=== PATIENT | female | born 1965 | race Caucasian/White ===

== ENCOUNTER → 2016-11-03 | Outpatient (CLI) | payer BC ==
--- NOTE | 2016-11-03 21:52 | WWHP ---
CHIEF COMPLAINT: The patient is here for her routine gynecologic exam and mammogram. HPI: This is a 51-year-old G2, P2 with an LMP of 05/26/2016. Her is status post vasectomy. She states she has had about 4 periods over the last 12 months and they have been infrequent. She has had more hot flashes and these were greatest about 2 months ago and have gotten slightly better. These are tolerable. She is otherwise without complaints. PAST MEDICAL HISTORY: Asthma and history of osteopenia. MEDICATIONS: 1. Advair 100/50, 1 puff daily. 2. Fluticasone nasal spray daily. 3. Zyrtec 10 mg daily. 4. Citracal calcium supplement daily. 5. Multivitamin daily. ALLERGIES: AVELOX, OMNICEF AND MEDROL DOSEPAK. PAST SURGICAL HISTORY: Unremarkable. PAST OB HISTORY: 2 vaginal deliveries. 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 SOCIAL HISTORY: She denies tobacco and drug use and has about 3 alcoholic drinks per week. 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 Family history is unchanged from the 2014 H&P. REVIEW OF SYSTEMS: She has gained about 6 pounds over the last year. She denies respiratory, cardiac or GI problems. PHYSICAL EXAM: Blood pressure 122/72. Height 5 feet 3-1/2 inches. Weight 137 pounds. Temperature 97.8, pulse 94. This a well-developed, well-nourished white female who is alert and oriented x3, in no acute distress. HEENT is within normal limits. NECK: Supple without mass or thyromegaly. CHEST AND LUNGS: Clear to auscultation. HEART: Regular rate and rhythm. Breasts are without mass or discharge. Axillary is negative for adenopathy. BACK: Negative for CVA tenderness. ABDOMEN: Soft, nontender, without palpable masses. PELVIC: Normal external genitalia. Cervix and vagina appear normal. There is no unusual discharge. There is mild atrophy noted. There is no evidence of prolapse. Bimanual: The uterus is midposition, nongravid size and nontender. There are no palpable adnexal masses or tenderness. Rectovaginal is negative for mass or tenderness and is negative for occult blood. EXTREMITIES: Nontender. IMPRESSION: 1. A 51-year-old perimenopausal female with oligomenorrhea and vasomotor symptoms. 2. Normal gynecologic exam. 3. History of osteopenia. PLAN: 1. Pap smear was performed. 2. Self-breast examination was discussed. 3. Mammogram will be done today. 4. Osteoporosis prevention was discussed. I have recommended that she try to get at least 120% of the daily value of calcium every day spread out throughout the day. I have also recommended vitamin D and regular exercise. 5. She will continue to keep a menstrual calendar and call if she is having problems. 6. She will return in 1 year.
--- NOTE | 2016-11-05 09:57 | MM ---
Reason for exam: screening (asymptomatic). Last mammogram was performed 1 year and 7 months ago. History: Family history of breast cancer in paternal grandmother. Took hormonal contraceptives for 3 years. Physical Findings: A clinical breast exam by your physician is recommended on an annual basis and results should be correlated with mammographic findings. MG Screening Mammo w CAD Bilateral CC and MLO view(s) were taken. Prior study comparison: April 09, 2015, bilateral MG screening mammo w CAD. January 09, 2014, bilateral digital screening mammo w/CAD. The breast tissue is heterogeneously dense. This may lower the sensitivity of mammography. No significant changes when compared with prior studies. ASSESSMENT: Benign, BI-RAD 2 RECOMMENDATION: Routine screening mammogram of both breasts in 1 year.
== END | disposition home or self-care (01) ==
LOC: WWCWWP 15:46
PROVIDERS: ATTEND Obstetrics & Gynecology
DX: Z12.31 Encounter for screening mammogram for malignant neoplasm of breast (principal)

== ENCOUNTER → 2018-01-18 | Outpatient (CLI) | payer BC ==
[2018-01-18 15:53] VITALS: BP 154/85; PULSE 79; TEMP 98.2; BMI 23.6
--- NOTE | 2018-01-18 16:25 | P.HPOB ---
History of Present Illness H&P Date: 01/18/18 Chief Complaint: The patient is here for her routine gynecologic exam and mammogram. This is a 52-year-old with an LMP of 01/02/2018. She has had for periods over the last one year. It have been about every 3 to 4 months. Most of her menstrual periods have been on the pension agent side. Her LMP was heavier than usual and lasted about 10 days. She has occasional hot flashes which are not very severe. Recently, she has been experiencing some right-sided deep dyspareunia. This has not been every time. Review of Systems She is lost about 4 pounds over the last year. She denies respiratory, cardiac , or G.I. problems. Past Medical History Past Medical History: Asthma Additional Past Medical History / Comment(s): History of osteopenia. History of Any Multi-Drug Resistant Organisms: None Reported Past Surgical History: No Surgical Hx Reported Past Psychological History: No Psychological Hx Reported Smoking Status: Never smoker Past Alcohol Use History: Occasional (Approximately 2 per week.) Past Drug Use History: None Reported - Past Family History Father Additional Family Medical History / Comment(s): Alzheimer's disease, atrial fibrillation and history of asbestosis. Mother Family Medical History: Hypertension Medications and Allergies Home Medications Medication Instructions Recorded Confirmed Type Fluticasone Propionate [Flovent bottle PO DAILY 01/18/18 History Diskus] Fluticasone/Salmeterol [Advair 1 inhalation PO BID 01/18/18 01/18/18 History 100-50 Diskus] Multivitamins, Thera [Multivitamin 1 tab PO DAILY 01/18/18 01/18/18 History (formulary)] Allergies Allergy/AdvReac Type Severity Reaction Status Date / Time No Known Allergies Allergy Unverified 01/18/18 15:55 Exam - Vital Signs Vital signs: Vital Signs Temp Pulse BP 01/18/18 15:51 98.2 F 79 154/85 Intake and Output 01/18/18 01/18/18 01/18/18 06:59 14:59 22:59 Other: Weight 60.328 kg Height 5'3", BMI 23.6. This is a well-developed well-nourished white female who is alert and oriented times 3 in no acute distress. HEENT: Within normal limits. NECK: Supple without mass or thyromegaly. CHEST AND LUNGS: Clear to auscultation. HEART: Regular rate and rhythm. BREASTS: Are without mass or discharge. AXILLARY EXAM: Negative for adenopathy. BACK: Negative for CVA tenderness. ABDOMEN: Soft, nontender, without palpable masses. PELVIC EXAM: Normal external genitalia. Cervix and vagina appear normal without significant atrophy. There is no unusual discharge. There is no evidence of prolapse. The uterus is midposition, approximately 8 to 10 weeks size, is firm and slightly irregular. The uterus is nontender . There are no palpable adnexal masses or tenderness. RECTAL EXAM: rectovaginal exam is negative for mass or tenderness and is negative for occult blood. EXTREMITIES: Nontender. IMPRESSION: 1. 52-year-old perimenopausal female with oligomenorrhea and mild vasomotor symptoms. 2. Recent right-sided deep dyspareunia. 3. Mildly enlarged 8 to 10 weeks size uterus consistent with possible uterine fibroids. The dyspareunia may be related to the uterine enlargement. 4. History of osteopenia. PLAN: 1. Pap smear was deferred since she had a normal one last year. 2. Self breast examination was discussed. 3. Screening mammogram will be done today. 4. The patient will be scheduled for a pelvic ultrasound to further evaluate the dyspareunia and uterine enlargement. 5. I have recommended screening colonoscopy based on her age. Dr. Donny covarrubias was given to the patient for this. 6. Will plan on repeating bone density testing next year. 7. She will return in one year and PRN.
--- NOTE | 2018-01-20 13:00 | MM ---
Reason for exam: screening (asymptomatic). Last mammogram was performed 1 year and 3 months ago. History: Family history of breast cancer in paternal grandmother. Took hormonal contraceptives for 3 years. Physical Findings: A clinical breast exam by your physician is recommended on an annual basis and results should be correlated with mammographic findings. MG Screening Mammo w CAD Bilateral CC and MLO view(s) were taken. Prior study comparison: November 03, 2016, bilateral MG screening mammo w CAD. April 09, 2015, bilateral MG screening mammo w CAD. The breast tissue is heterogeneously dense. This may lower the sensitivity of mammography. No significant changes when compared with prior studies. ASSESSMENT: Negative, BI-RAD 1 RECOMMENDATION: Routine screening mammogram of both breasts in 1 year.
== END | disposition home or self-care (01) ==
LOC: WWCWWP 15:17
PROVIDERS: ATTEND Obstetrics & Gynecology
DX: Z12.31 Encounter for screening mammogram for malignant neoplasm of breast (principal)
CPT/HCPCS: 77067

== ENCOUNTER → 2018-01-24 | Outpatient (CLI) | payer BC ==
--- NOTE | 2018-01-25 07:59 | US ---
EXAMINATION TYPE: US pelvic complete DATE OF EXAM: 01/24/2018 COMPARISON: 04/09/2015 CLINICAL HISTORY: N85.2 ENLARGED UTERUS,N94.1 DYSPAREUNIA,R68.89 ABN FINDINGS. right sided pelvic lilia n TECHNIQUE: TA. Date of LMP: 01/06/2018 EXAM MEASUREMENTS: Uterus: 8.3 x 6.1 x 5.1 cm Endometrial Stripe: 0.7 cm Right Ovary: 2.7 x 1.6 x 1.8 cm Left Ovary: 3.3 x 1.9 x 1.9 cm 1. Uterus: Anteverted There is a solitary hypoechoic 3.0 x 3.0 x 2.8 cm intramural uterine fundal lesion that is right lateral. This better delineated on today's examination than the prior. 2. Endometrium: wnl 3. Right Ovary: wnl 4. Left Ovary: wnl 5. Bilateral Adnexa: wnl 6. Posterior cul-de-sac: wnl IMPRESSION: 1. Solitary 3.0 cm intramural uterine fundal lesion, likely a leiomyoma, better delineated on today's examination than the prior of 2014. 2. Unremarkable endometrial thickness and ovaries.
== END | disposition home or self-care (01) ==
LOC: RADUSWWP 16:18
PROVIDERS: ATTEND Obstetrics & Gynecology
DX: N85.9 Noninflammatory disorder of uterus, unspecified (principal); N94.10 Unspecified dyspareunia
CPT/HCPCS: 76856

== ENCOUNTER → 2020-05-08 | Outpatient (CLI) | payer BC ==
[2020-05-08 11:46] VITALS: BP 145/78; PULSE 86; RESP 18; TEMP 98.3
--- NOTE | 2020-05-08 12:53 | P.HPOB ---
History of Present Illness H&P Date: 05/08/20 Chief Complaint: The patient is here for her routine gynecologic exam and ma mmogram. This is a 55-year-old with an LMP of 2018. The patient states her hot flashes that she had 1-2 years ago have improved and are infrequent. She has been experiencing pain with intercourse not improved with lubrication. She denies pelvic pain with deep penetration. She also can have a difficult time falling asleep at times which started after the menopause but has gotten worse over the last 6 months. She is otherwise without gynecologic complaints and denies postmenopausal bleeding. Review of Systems Her weight has been fairly stable. She denies respiratory or cardiac problems. GI: Occasional constipation. Musculoskeletal: She does have some joint pains. Past Medical History Past Medical History: Asthma Additional Past Medical History / Comment(s): History of osteopenia. 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 - Past Family History Father Family Medical History: AFIB, Dementia Additional Family Medical History / Comment(s): Alzheimer's disease, atrial fibrillation and history of asbestosis. Paternal grandmother had breast cancer. Mother Family Medical History: Hypertension Medications and Allergies Home Medications Medication Instructions Recorded Confirmed Type Fluticasone Propionate [Flovent 50 mcg PO DAILY 01/18/18 05/08/20 History Diskus] Fluticasone/Salmeterol [Advair 1 inhalation PO BID 01/18/18 05/08/20 History 100-50 Diskus] Multivitamins, Thera [Multivitamin 1 tab PO DAILY 01/18/18 05/08/20 History (formulary)] Azelastine HCl [Astepro] 137 mcg NASAL BID 05/08/20 05/08/20 History Calcium Carb/Vitamin D3/Vit K1 1 tab PO DAILY 05/08/20 05/08/20 History [Citracal Soft Chew] Allergies Allergy/AdvReac Type Severity Reaction Status Date / Time cefdinir [From Omnicef] Allergy Rash/Hives Unverified 05/08/20 11:46 Exam Vital Signs Temp Pulse Resp BP Pulse Ox 05/08/20 11:44 98.3 F 86 18 145/78 99 Intake and Output 05/07/20 05/08/20 05/08/20 22:59 06:59 14:59 Other: Weight 61.235 kg Height 5 feet 4 inches, weight 135 pounds, BMI 23.2. This is a well-developed well-nourished white female who is alert and oriented times 3 in no acute distress. HEENT: Within normal limits. NECK: Supple without mass or thyromegaly. CHEST AND LUNGS: Clear to auscultation. HEART: Regular rate and rhythm. BREASTS: Are without mass or discharge. AXILLARY EXAM: Negative for adenopathy. BACK: Negative for CVA tenderness. ABDOMEN: Soft, nontender, without palpable masses. PELVIC EXAM: Normal external genitalia with mild atrophy. Cervix and vagina appear normal with mild atrophy. Vagina feels somewhat smaller than average for a parous woman. There is no unusual discharge. There is no evidence of prolapse. The uterus is midposition, nongravid size and nontender. There are no palpable adnexal masses or tenderness. RECTAL EXAM: Rectovaginal exam is negative for mass or tenderness and is negative for occult blood. EXTREMITIES: Nontender. IMPRESSION: 1. 55-year-old menopausal female with normal gynecologic exam. 2. Dyspareunia no improvement with lubrication probably secondary to genital atrophy and possible loss of elasticity in decreasing vagina size secondary to menopause. 3. Elevated blood pressure 4. History of osteopenia PLAN: 1. Pap smear was performed. 2. Self breast awareness was discussed with the patient. 3. Screening mammogram will be done today. 4. Trial of Premarin vaginal cream 1-2 g into the vagina twice weekly. The electronic prescription will be sent to [facility] pharmacy on [facility]. 5. Osteoporosis prevention was discussed. I have stressed the importance of adequate calcium, vitamin D and regular exercise. Recommended amounts of calcium and vitamin D were also discussed. Last bone density test was done in 2014. I recommended repeating bone density testing and the order slip was given to the patient for this. 6. I have recommended screening colonoscopy based on her age since she she has never had a colonoscopy. She states she is planning to establish with a primary care physician and then will arrange for colonoscopy. 7. She was advised to return in one year for her annual well woman exam and as needed.
--- NOTE | 2020-05-10 08:59 | MM ---
Reason for exam: screening (asymptomatic). Last mammogram was performed 2 years and 4 months ago. History: Patient is postmenopausal. Family history of breast cancer in paternal grandmother. Took hormonal contraceptives for 3 years. Physical Findings: A clinical breast exam by your physician is recommended on an annual basis and results should be correlated with mammographic findings. MG Screening Mammo w CAD Bilateral CC and MLO view(s) were taken. Prior study comparison: January 18, 2018, bilateral MG screening mammo w CAD. November 03, 2016, bilateral MG screening mammo w CAD. The breast tissue is heterogeneously dense. This may lower the sensitivity of mammography. No significant changes when compared with prior studies. ASSESSMENT: Negative, BI-RAD 1 RECOMMENDATION: Routine screening mammogram of both breasts in 1 year.
--- NOTE | 2020-05-14 09:52 | P.PN ---
Progress Note - Text Progress Note Date: 05/14/20 OUTPATIENT FOLLOW-UP NOTE TEST(S)/RESULTS: test results from 05/08/2020 include negative Pap smear and benign mammogram. METHOD OF NOTIFICATION: the patient was notified by phone. PATIENT COMMENTS: the patient is happy to hear these results. DIAGNOSIS: negative Pap smear and benign mammogram. DISCUSSION: PLAN: the patient is to return in one year for her annual well woman exam.
== END | disposition home or self-care (01) ==
LOC: WWCWWP 11:16
PROVIDERS: ATTEND Obstetrics & Gynecology
DX: Z12.31 Encounter for screening mammogram for malignant neoplasm of breast (principal)
CPT/HCPCS: 77067

== ENCOUNTER → 2020-06-07 | Outpatient (CLI) | payer BC ==
--- NOTE | 2020-06-07 18:37 | BD ---
EXAMINATION TYPE: Axial Bone Density DATE OF EXAM: 06/07/2020 COMPARISON: NONE CLINICAL HISTORY: 55-year-old female postmenopausal screening Height: 5 FT 3 1/2 IN Weight: 131 FRAX RISK QUESTIONS: Alcohol (3 or more units per day): NO Family History (Parent hip fracture): NO Glucocorticoids (More than 3mos): YES (Ex: prednisone, prednisolone, methylprednisolone, dexamethasone, and hydrocortisone). History of Fracture in Adulthood: YES Secondary Osteoporosis: 1. Type 1 Diabetes: NO 2. Hyperthyroidism: NO 3. Menopause before 45: NO 4. Malnutrition: NO 5. Chronic liver disease: NO Rheumatoid Arthritis: NO Current Tobacco Use: NO RISK FACTORS HISTORY OF: Active: YES Postmenopausal woman: AGE 53 MEDICATIONS: Additional Medications: ADVAIR,NASAL INHALER, Additional History: HISTORY OF ASTHMA EXAM MEASUREMENTS: Bone mineral densitometry was performed using the [employer] System. Bone mineral density as measured about the Lumbar spine is: ----- L1-L4(G/cm2): 0.957 T Score Values are as follows: ----- L2: -2.1 ----- L3: -1.7 ----- L4: -1.8 ----- L1-L4: -1.9 Bone mineral density has: DECREASED -6.3 % since study of: 2014 Bone mineral density about the R hip (g/cm2): 0.937 Bone mineral density about the L hip (g/cm2): 0.961 T Score values are as follows: -----R Neck: -0.7 -----L Neck: -0.6 -----R Total: -1.3 -----L Total: -1.2 Bone mineral density has: DECREASED -6.8 % since study of: 2014 IMPRESSION: Osteopenia (T Score between -2.5 and -1). There is slightly increased risk of fracture and the patient may be considered for treatment. Re-Screen 2-5 years. NOTE: T-SCORE=SD OF THE YOUNG ADULT MEAN.
== END | disposition home or self-care (01) ==
LOC: RADBDWWP 14:13
PROVIDERS: ATTEND Obstetrics & Gynecology
DX: M85.80 Other specified disorders of bone density and structure, unspecified site (principal); Z78.0 Asymptomatic menopausal state
CPT/HCPCS: 77080

== ENCOUNTER → 2021-08-19 | Outpatient (CLI) | payer BC ==
[2021-08-19 15:39] VITALS: BP 146/82; PULSE 82; RESP 16; TEMP 98.3
--- NOTE | 2021-08-19 16:25 | P.HPOB ---
History of Present Illness H&P Date: 08/19/21 Chief Complaint: The patient is here for her routine gynecologic exam and ma mmogram. This is a 56-year-old with an LMP of 2018. The patient is without gynecologic complaints and denies any postmenopausal bleeding. She states she did well with Premarin cream which was used for vaginal dryness. She states her insurance no longer covers Premarin vaginal cream. Review of Systems The patient's weight has been stable over the last year. She denies respiratory, cardiac, or G.I. problems. Past Medical History Past Medical History: Asthma Additional Past Medical History / Comment(s): History of osteopenia. 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 - Past Family History Father Family Medical History: AFIB, Dementia Additional Family Medical History / Comment(s): . Alzheimer's disease, atrial fibrillation and history of asbestosis. Paternal grandmother had breast cancer. Mother Family Medical History: Hypertension Medications and Allergies Home Medications Medication Instructions Recorded Confirmed Type Fluticasone/Salmeterol [Advair 1 inhalation PO BID 01/18/18 08/19/21 History 100-50 Diskus] Multivitamins, Thera [Multivitamin 1 tab PO DAILY 01/18/18 08/19/21 History (formulary)] Calcium Carb/Vitamin D3/Vit K1 1 tab PO DAILY 05/08/20 08/19/21 History [Citracal Soft Chew] Cetirizine HCl [Zyrtec] 10 mg PO DAILY 08/19/21 08/19/21 History Allergies Allergy/AdvReac Type Severity Reaction Status Date / Time cefdinir [From Omnicef] Allergy Rash/Hives Unverified 08/19/21 15:31 Exam Vital Signs Temp Pulse Resp BP Pulse Ox 08/19/21 15:36 98.3 F 82 16 146/82 100 Intake and Output 08/19/21 08/19/21 08/19/21 06:59 14:59 22:59 Other: Weight 60.781 kg Height 5 feet 3 inches, weight 134 pounds, BMI 23.7. This is a well-developed well-nourished white female who is alert and oriented times 3 in no acute distress. HEENT: Within normal limits. NECK: Supple without mass or thyromegaly. CHEST AND LUNGS: Clear to auscultation. HEART: Regular rate and rhythm. BREASTS: Are without mass or discharge. AXILLARY EXAM: Negative for adenopathy. BACK: Negative for CVA tenderness. ABDOMEN: Soft, nontender, without palpable masses. PELVIC EXAM: Normal external genitalia with mild atrophy. Cervix and vagina appear normal with mild atrophy. There is no unusual discharge. There is no evidence of prolapse. The uterus is midposition, nongravid size and nontender. There are no palpable adnexal masses or tenderness. RECTAL EXAM: Rectovaginal exam is negative for mass or tenderness and is negative for occult blood. EXTREMITIES: Nontender. IMPRESSION: 1. 56-year-old menopausal female with normal gynecologic exam. 2. History of osteopenia. 3. Mildly elevated blood pressure PLAN: 1. Pap smear was deferred since she had a normal one on 05/08/2020. 2. Self breast awareness was discussed with the patient. We have also discussed symptoms associated with inflammatory breast cancer. 3. Screening mammogram will be done today. 4. We have discussed her elevated blood pressure. I have recommended that she check her own blood pressure at home on a regular basis. I have also recommended that she establish with a primary care physician since she currently does not have one. She can follow up with a primary care physician for blood pressure elevations. 5. I recommended colorectal screening her age. Again, she should establish with a primary care physician who can further discussed the options with her. 6. She has completed her Covid vaccination series. 7. Osteoporosis prevention was discussed. I have stressed the importance of adequate calcium, vitamin D and regular exercise. Recommended amounts of calcium and vitamin D were also discussed. We will plan on repeating bone density testing in 1-2 years. 8. She was advised to return in one year for her annual well woman exam.
--- NOTE | 2021-08-21 10:34 | MM ---
Reason for exam: screening (asymptomatic). Last mammogram was performed 1 year and 3 months ago. History: Patient is postmenopausal. Family history of breast cancer in paternal grandmother. Took hormonal contraceptives for 3 years. Physical Findings: A clinical breast exam by your physician is recommended on an annual basis and results should be correlated with mammographic findings. MG Screening Mammo w CAD Bilateral CC and MLO view(s) were taken. Prior study comparison: May 08, 2020, bilateral MG screening mammo w CAD. January 18, 2018, bilateral MG screening mammo w CAD. The breast tissue is heterogeneously dense. This may lower the sensitivity of mammography. No significant changes when compared with prior studies. ASSESSMENT: Benign, BI-RAD 2 RECOMMENDATION: Routine screening mammogram of both breasts in 1 year.
== END ==
LOC: WWCWWP 15:14
PROVIDERS: ATTEND Obstetrics & Gynecology
DX: Z12.31 Encounter for screening mammogram for malignant neoplasm of breast (principal); Z01.419 Encounter for gynecological examination (general) (routine) without abnormal findings; J45.909 Unspecified asthma, uncomplicated; Z87.39 Personal history of other diseases of the musculoskeletal system and connective tissue; R03.0 Elevated blood-pressure reading, without diagnosis of hypertension; Z88.1 Allergy status to other antibiotic agents
CPT/HCPCS: 77067

== ENCOUNTER → 2023-02-16 | Outpatient (CLI) | payer BC ==
[2023-02-16 08:03] VITALS: BP 147/79; PULSE 76; RESP 17; TEMP 97.7
--- NOTE | 2023-02-16 08:41 | P.HPOB ---
History of Present Illness H&P Date: 02/16/23 Chief Complaint: The patient is here for her routine gynecologic exam and ma mmogram. This is a 57-year-old with an LMP of 2018. The patient is without gynecologic complaints and denies any postmenopausal bleeding. She states she continues to do well using Premarin vaginal cream for vaginal dryness. Review of Systems The patient has lost about 7 pounds with diet and exercise. She denies respiratory or cardiac problems. GI: Occasional constipation. Past Medical History Past Medical History: Asthma Additional Past Medical History / Comment(s): History of osteopenia. 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 - Past Family History Father Family Medical History: AFIB, Dementia Additional Family Medical History / Comment(s): . Alzheimer's disease, atrial fibrillation and history of asbestosis. Paternal grandmother had breast cancer. Mother Family Medical History: Hypertension Sister(s) Family Medical History: Cancer Additional Family Medical History / Comment(s): Breast cancer at age 58. Medications and Allergies Home Medications Medication Instructions Recorded Confirmed Type Fluticasone Propion/Salmeterol 1 inhalation PO BID 01/18/18 02/16/23 History [Advair 100-50 Diskus] Multivitamins, Thera [Multivitamin 1 tab PO DAILY 01/18/18 02/16/23 History (formulary)] Calcium Carb/Vitamin D3/Vit K1 1 tab PO DAILY 05/08/20 02/16/23 History [Citracal Soft Chew] Cetirizine HCl [Zyrtec] 10 mg PO DAILY 08/19/21 02/16/23 History Estrogens, Conjugated Cream 1 applicator VAGINAL DIRECTED 08/19/21 02/16/23 Rx [Premarin Vaginal Cream] #42.5 gm Azelastine HCl [Astepro] 1 spray .ROUTE DAILY 02/16/23 02/16/23 History Allergies Allergy/AdvReac Type Severity Reaction Status Date / Time cefdinir [From Omnicef] Allergy Rash/Hives Unverified 02/16/23 07:57 Exam Vital Signs Temp Pulse Resp BP Pulse Ox 02/16/23 08:01 97.7 F 76 17 147/79 100 Intake and Output 02/15/23 02/16/23 02/16/23 22:59 06:59 14:59 Other: Weight 57.606 kg Height 5 feet 3 inches, weight 127 pounds, BMI 22.5. This is a well-developed well-nourished white female who is alert and oriented times 3 in no acute distress. HEENT: Within normal limits. NECK: Supple without mass or thyromegaly. CHEST AND LUNGS: Clear to auscultation. HEART: Regular rate and rhythm. BREASTS: Are without mass or discharge. AXILLARY EXAM: Negative for adenopathy. BACK: Negative for CVA tenderness. ABDOMEN: Soft, nontender, without palpable masses. PELVIC EXAM: Normal external genitalia with mild atrophy. Cervix and vagina appear normal with mild atrophy. There is no unusual discharge. There is no evidence of prolapse. The uterus is midposition, nongravid size and nontender. There are no palpable adnexal masses or tenderness. RECTAL EXAM: Rectovaginal exam is negative for mass or tenderness and is negative for occult blood. EXTREMITIES: Nontender. IMPRESSION: 1. 57-year-old menopausal female with normal gynecologic exam. 2. Mildly elevated blood pressure. 3. History of osteopenia. 4. Family history of breast cancer in her sister. PLAN: 1. Pap smear cotest was performed. 2. Self breast awareness was discussed with the patient. We have also discussed symptoms associated with inflammatory breast cancer. 3. Screening mammogram will be done today. 4. We have discussed her elevated blood pressure. She states she has a blood pressure cuff at home. She states her blood pressure was normal yesterday and today before coming to the appointment. I recommended that she check her own blood pressure on a regular basis and establish with a PCP who she can see for blood pressure elevations. She plans to get a PCP this year. 5. Osteoporosis prevention was discussed. I have stressed the importance of adequate calcium, vitamin D and regular exercise. Recommended amounts of calcium and vitamin D were also discussed. I recommended repeating the bone density test since her last one was on 06/07/2020. The order slip was given to the patient for this. 6. I have recommended screening colonoscopy since she has never had one done. She states she will establish with a PCP this year and try to set up an appointment for colonoscopy. 7. Cancer genetics testing was discussed. Her sister was recently diagnosed with breast cancer. A paternal grandmother also had breast cancer. She plans to ask her sister if she underwent cancer genetic testing. 8. She was advised to return in one year for her annual well woman exam.
--- NOTE | 2023-02-17 07:40 | MM ---
Reason for Exam: Screening (asymptomatic). Last mammogram was performed 1 year(s) and 6 month(s) ago. Patient History: Menarche at age 13. First Full-Term at age 28. Postmenopausal. Patient used Hormonal Contraceptives for 3 years. Paternal grandmother had breast cancer, age 36. Sister had breast cancer, age 57. Risk Values: Ashley 5 year model risk: 2.4%. NCI Lifetime model risk: 15.2%. Prior Study Comparison: 01/18/2018 Bilateral Screening Mammogram, [facility]. 05/08/2020 Bilateral Screening Mammogram, [facility]. 08/19/2021 Bilateral Screening Mammogram, [facility]. Tissue Density: The breast tissue is heterogeneously dense. This may lower the sensitivity of mammography. Findings: Analyzed By CAD. There is no suspicious group of microcalcifications or new suspicious mass in either breast. Overall Assessment: Negative, BI-RAD 1 Management: Screening Mammogram of both breasts in 1 year. A clinical breast exam by your physician is recommended on an annual basis and results should be correlated with mammographic findings. [facility] will attempt to contact patient to return for supplemental views and ultrasound if indicated. Electronically signed and approved by: Anand Chaparro DO
== END ==
LOC: WWCWWP 07:48
PROVIDERS: ATTEND Obstetrics & Gynecology
DX: Z12.31 Encounter for screening mammogram for malignant neoplasm of breast (principal); Z01.419 Encounter for gynecological examination (general) (routine) without abnormal findings; J45.909 Unspecified asthma, uncomplicated; M85.80 Other specified disorders of bone density and structure, unspecified site; R03.0 Elevated blood-pressure reading, without diagnosis of hypertension; I10 Essential (primary) hypertension; Z79.51 Long term (current) use of inhaled steroids; Z80.3 Family history of malignant neoplasm of breast; Z82.49 Family history of ischemic heart disease and other diseases of the circulatory system; Z88.1 Allergy status to other antibiotic agents; Z87.39 Personal history of other diseases of the musculoskeletal system and connective tissue
CPT/HCPCS: 77067